=== PATIENT | male | born 1960 | race Caucasian/White ===

== ENCOUNTER 2016-10-27 13:30 | Emergency (ER) | payer MEDICARE ==
[~2016-10-27 13:30] MED LIST: /DULO30CA OR; ACET500C OR; BACL10TA2 OR; CODE15TA PO; ENDOCET; FLEXERIL PO; HYDR25TA6 OR; HYDROCODONE PO; IBUP800T PO; LISI20TA5 OR; LISI40TA PO; LYRI75CA OR; MEDROL DOSE PACK OR; NAPR500T OR; NEUR300C; NEUR600T PO; NUCYNTA; PERC5TAB8 OR; PROM12SU PO; TOPR100T OR; TOPR100T PO; ZEST20TA4 OR; ZITH250T OR
[2016-10-27] MEDS ORDERED: KETOROLAC 30 MG/ML VIAL (J1885) As Ordered ONE (15:19)
--- NOTE | 2016-10-27 16:15 | EDDOCDS ---
Nurse's Notes [facility] Name: Ricardo Franco Age: 55 yrs Sex: Male : 1960 Arrival Date: 10/27/2016 Time: 13:30 Bed PD Private MD: DEMARCUS, Diagnosis: Sciatica, left side;Intervertebral disc disorders with radiculopathy, lumbosacral region Presentation: 10/27 13:42 Presenting complaint: Patient states: Worsening left hip pain for one week, no injury. dwg States he thinks he has bursitis. Adult Sepsis Screening: The patient does not have new or worsening altered mentation. Patient's respiratory rate is less than 22. Systolic blood pressure is greater than 100. Patient has a qSOFA score of 0- Negative Sepsis Screen. Suicide/Homicide risk assessment- the patient denies having any suicidal and/or homicidal ideations and does not present with any other emotional, behavioral or mental health complaints. Status: Patient is not a sales representative facility services or dependent. Transition of care: patient was not received from another setting of care. 13:42 Acuity: KEVEN Level 4 dwg 13:42 Method Of Arrival: Walkin/Carried/Asstd dwg Triage Assessment: 13:45 General: Appears in no apparent distress. Pain: Pain currently is 10 out of 10 on a dwg pain scale. HIV screening NA for this visit Offered previously. Historical: - Allergies: no known allergies; - Home Meds: 1. lisinopril-hydrochlorothiazide 20-12.5 mg oral tab 1 tab once daily (Last dose: 10/27/2016 11:00) - PMHx: Hypertension; Back pain; - PSHx: Back surgery 2010; - Social history: Smoking status: Patient uses tobacco products, current every day smoker. No barriers to communication noted, The patient speaks fluent Bengali. - Family history: Not pertinent. - : The pt / caregiver states he / she is not on anticoagulants. Home medication list is obtained from the patient. - Exposure Risk Screening:: None identified. Screenin:13 Screening information is obtained from the patient. Fall risk: No risks identified. srm Assistance ADL's: requires no assistance with activities of daily living. Abuse/DV Screen: The patient / caregiver reports he/she is: not in a situation that causes fear, pain or injury. Nutritional screening: No deficits noted. Advance Directives: Unable to assess Advance Directive status due to pt condition. home support is adequate. Assessment: 15:27 General: Appears uncomfortable, Behavior is appropriate for age, cooperative. Pain: mb9 Location: left hip Pain currently is 8 out of 10 on a pain scale. 16:13 Reassessment: Patient appears in no apparent distress at this time. Patient states srm feeling better. Patient states symptoms have improved. Vital Signs: 13:31 BP 192 / 97; Pulse 91; Resp 20; Temp 98.4; Pulse Ox 97% ; Weight 90.72 kg; Height 5 ft. cmb 7 in. (170.18 cm); Pain 10/10; 15:27 BP 169 / 91 (man/); mdr 16:13 BP 139 / 88; Pulse 75; Resp 18; Temp 99.2(TE); Pulse Ox 96% on R/A; Pain 7/10; mdr 16:13 Pain 4/10; srm 13:31 Body Mass Index 31.32 (90.72 kg, 170.18 cm) cmb Vitals: 13:31 Log In Time: October 27, 2016 at 13:30. cmb ED Course: 13:31 Patient visited by Susana Woodard. cmb 13:31 Emeka Chavez is Private Physician. cmb 13:31 DEMARCUS is Private Physician. cmb 13:31 Patient moved to Waiting cmb 13:33 Patient moved to Pre RCE cmb 13:43 Triage Initiated dwg 15:00 Patient moved to Triage 2 le 15:03 [facility] dt4 15:03 Tony Wyatt MD is Attending Physician. dt4 15:03 Patient visited by Eri Esquivel PA-C. dt4 15:18 Patient moved to PD2 mdr 15:27 Patient visited by Jorje Booker PCA. mdr 15:29 [facility] Payment Agreement was scanned into [employer] and attached to record. lg 15:59 Patient visited by Eri Esquivel PA-C. dt4 16:01 Your own Physician is Referral Physician. dt4 16:13 The patient / caregiver is instructed regarding the plan of care and ED course. Patient srm has correct armband on for positive identification. 16:13 No IV's were initiated during this patient's visit. No procedures done that require srm assistance. 16:14 Patient visited by Jorje Booker PCA. mdr Administered Medications: 15:26 Drug: ketorolac 60 mg [ketorolac 30 mg/mL (1 mL) injection solution (2 mL)] Route: IM; mb9 Site: right gluteus; 16:13 Follow up: Pain 10 Adult srm Order Results: There are currently no results for this order. Outcome: 16:02 Discharge ordered by Provider. dt4 16:13 Discharge Assessment: Patient awake, alert and oriented x 3. No cognitive and/or srm functional deficits noted. Patient verbalized understanding of disposition instructions. patient administered narcotics - no. The following High Risk Discharge criteria are identified: None. Discharged to home ambulatory. Condition: good Condition: stable. Property sent home with patient. 16:14 Discharge instructions given to patient, Instructed on discharge instructions, follow srm up and referral plans. medication usage, Demonstrated understanding of instructions, medications, Pt was receptive of discharge instructions/ teaching. Prescriptions given X 2. No special radiology studies were completed. 16:15 Patient left the ED. srm Signatures: Curtis Silverio, Jossie Oneal RN, RN RN Ara Duvall, Reg Reg lg Rachel Dueñas, METAL MELTER METAL MELTER Susana Lenz Diane, PA-C PA-C dt4 Jose Ramon Salas RN RN mb9 Jorje Booker PCA TUNNEL FORM PLACING SUPERVISOR mdr MTDD
--- NOTE | 2016-10-27 16:15 | EDDOCDS ---
Physician Documentation [facility] Name: Ricardo Franco Age: 55 yrs Sex: Male : 1960 Arrival Date: 10/27/2016 Time: 13:30 Bed PD Private MD: DEMARCUS, Disposition: 10/27/16 16:02 Discharged to Home/Self Care. Impression: Sciatica, left side, Intervertebral disc disorders with radiculopathy, lumbosacral region. - Condition is Stable. - Discharge Instructions: Lumbosacral Radiculopathy, Sciatica. - Prescriptions for [place] 5- 325 mg Oral Tablet - take 1 tablet by ORAL route every 6 hours As needed MDD: 4 tabs; 20 tablet. Prednisone 20 mg Oral Tablet - take 2 tablet by ORAL route once daily for 5 days; 10 tablet. - Medication Reconciliation, Local Pharmacy Hours form. - Follow up: Emergency Department; When: As needed; Reason: Worsening of conditions. Follow up: Your own Physician; When: DR. CABRERA IN [place] ([place] ; Reason: Wound/Symptom Recheck, Recheck today's complaints, Continuance of care. - Problem is new. - Symptoms have improved. Historical: - Allergies: no known allergies; - Home Meds: 1. lisinopril-hydrochlorothiazide 20-12.5 mg oral tab 1 tab once daily (Last dose: 10/27/2016 11:00) - PMHx: Hypertension; Back pain; - PSHx: Back surgery 2010; - Social history: Smoking status: Patient uses tobacco products, current every day smoker. No barriers to communication noted, The patient speaks fluent Syrian. - Family history: Not pertinent. - : The pt / caregiver states he / she is not on anticoagulants. Home medication list is obtained from the patient. - Exposure Risk Screening:: None identified. Vital Signs: 10/27 13:31 BP 192 / 97; Pulse 91; Resp 20; Temp 98.4; Pulse Ox 97% ; Weight 90.72 kg / 200 lbs; cmb Height 5 ft. 7 in. (170.18 cm); Pain 10/10; 15:27 BP 169 / 91 (man/); mdr 16:13 BP 139 / 88; Pulse 75; Resp 18; Temp 99.2(TE); Pulse Ox 96% on R/A; Pain 7/10; mdr 16:13 Pain 4/10; srm 13:31 Body Mass Index 31.32 (90.72 kg, 170.18 cm) cmb MDM: 15:16 ketorolac 60 mg IM once ordered. dt4 15:17 Recheck B/P ordered. dt4 15:18 Hip,AP,LAT to include Pelvis Ordered. EDMS 15:18 Spine. Lumbosacral, Complete Ordered. EDMS 15:29 Financial registration complete. lg 15:29 [facility] Payment Agreement was scanned into [employer] and attached to record. lg Administered Medications: 15:26 Drug: ketorolac 60 mg [ketorolac 30 mg/mL (1 mL) injection solution (2 mL)] Route: IM; mb9 Site: right gluteus; 16:13 Follow up: Pain 4/10 Adult srm Signatures: Dispatcher [employer] EDMS Curtis Silverio RN RN [facility] Jossie Sierra RN RN srm Ara Tejeda, Reg Reg lg Eri Esquivel PA-C PA-C dt4 Jose Ramon Salas RN mb9 The chart was reviewed and I authenticate all verbal orders and agree with the evaluation and treatment provided.Attachments: 15:29 [facility] Payment Agreement lg MTDD
--- NOTE | 2016-10-27 16:18 | REP ---
Lumbar spine series: Five views. History: Low back and left hip pain. Comparison study January 30, 2015. Findings: Lumbar vertebral body heights are preserved. Alignment is normal on lateral radiograph. There is a mild levoconvex curvature on the AP projection. There is degenerative disc disease at L4-5, which is a little more pronounced than on the prior study. Some degenerative disc narrowing and spur formation is also noted at L3-4 and L2-3. There is osteoarthritic facet hypertrophy and sclerosis at L5-S1 and L4-5 bilaterally, left more so than right. This is unchanged from the January 2015 prior study. Pedicles and posterior elements are intact. Degenerative disc disease seen in the lower thoracic spine as well. Sacrum and SI joints are intact. Impression: Multilevel degenerative disc disease. Osteoarthritic facet changes noted at L4-5 and L5-S1 bilaterally. Findings status quo from the prior study January 28, 2015. No acute bony abnormality seen. Signed by Gregorio Villanueva MD 10/27/2016 04:27 P
--- NOTE | 2016-10-27 16:34 | REP ---
AP pelvis left hip: Three views: History: Left hip pain. Findings: The bony pelvic ring is intact. No hip or sacral fracture is seen. Femoral heads are smooth and rounded and hip joint spaces preserved. No other acute bony abnormality is seen. Impression: No evidence of fracture or other acute bony abnormality. Some spondylosis changes are noted in the lower lumbar spine. Signed by Gregorio Villanueva MD 10/27/2016 05:02 P
--- NOTE | 2016-10-29 17:15 | EDDOCDS ---
Physician Documentation [facility] Name: Ricardo Franco Age: 55 yrs Sex: Male : 1960 Arrival Date: 10/27/2016 Time: 13:30 Bed PD Private MD: DEMARCUS, Disposition: 10/27/16 16:02 Discharged to Home/Self Care. Impression: Sciatica, left side, Intervertebral disc disorders with radiculopathy, lumbosacral region. - Condition is Stable. - Discharge Instructions: Lumbosacral Radiculopathy, Sciatica. - Prescriptions for [place] 5- 325 mg Oral Tablet - take 1 tablet by ORAL route every 6 hours As needed MDD: 4 tabs; 20 tablet. Prednisone 20 mg Oral Tablet - take 2 tablet by ORAL route once daily for 5 days; 10 tablet. - Medication Reconciliation, Local Pharmacy Hours form. - Follow up: Emergency Department; When: As needed; Reason: Worsening of conditions. Follow up: Your own Physician; When: DR. CABRERA IN [place] ([place] ; Reason: Wound/Symptom Recheck, Recheck today's complaints, Continuance of care. - Problem is new. - Symptoms have improved. Historical: - Allergies: no known allergies; - Home Meds: 1. lisinopril-hydrochlorothiazide 20-12.5 mg oral tab 1 tab once daily (Last dose: 10/27/2016 11:00) - PMHx: Hypertension; Back pain; - PSHx: Back surgery 2010; - Social history: Smoking status: Patient uses tobacco products, current every day smoker. No barriers to communication noted, The patient speaks fluent Kyrgyz. - Family history: Not pertinent. - : The pt / caregiver states he / she is not on anticoagulants. Home medication list is obtained from the patient. - Exposure Risk Screening:: None identified. Vital Signs: 10/27 13:31 BP 192 / 97; Pulse 91; Resp 20; Temp 98.4; Pulse Ox 97% ; Weight 90.72 kg / 200 lbs; cmb Height 5 ft. 7 in. (170.18 cm); Pain 10/10; 15:27 BP 169 / 91 (man/); mdr 16:13 BP 139 / 88; Pulse 75; Resp 18; Temp 99.2(TE); Pulse Ox 96% on R/A; Pain 7/10; mdr 16:13 Pain 4/10; srm 13:31 Body Mass Index 31.32 (90.72 kg, 170.18 cm) cmb MDM: 15:16 ketorolac 60 mg IM once ordered. dt4 15:17 Recheck B/P ordered. dt4 15:18 Hip,AP,LAT to include Pelvis Ordered. EDMS 15:18 Spine. Lumbosacral, Complete Ordered. EDMS 15:29 Financial registration complete. lg 15: [facility] Payment Agreement was scanned into [employer] and attached to record. lg 10/28 09: T-Sheet-- Draft Copy was scanned into [employer] and attached to record. gb : Radiology Report was scanned into [employer] and attached to record. gb Administered Medications: 10/27 15:26 Drug: ketorolac 60 mg [ketorolac 30 mg/mL (1 mL) injection solution (2 mL)] Route: IM; mb9 Site: right gluteus; 16:13 Follow up: Pain 4/10 Adult srm Signatures: Dispatcher [employer] EDMS Curtis Silverio, RN RN dwJossie Garcia RN RN srm Mary Charles, Reg Reg gb Ara Tejeda, Reg Reg lg Eri Esquivel PA-C PA-C dt4 Jose Ramon Salas RN mb9 The chart was reviewed and I authenticate all verbal orders and agree with the evaluation and treatment provided.Attachments: 15: [facility] Payment Agreement lg 10/28 08:22 T-Sheet-- Draft Copy gb Chart Complete MTDD
--- NOTE | 2016-10-29 17:15 | EDDOCDS ---
Physician Documentation [facility] Name: Ricardo Franco Age: 55 yrs Sex: Male : 1960 Arrival Date: 10/27/2016 Time: 13:30 Bed PD Private MD: DEMARCUS, Disposition: 10/27/16 16:02 Discharged to Home/Self Care. Impression: Sciatica, left side, Intervertebral disc disorders with radiculopathy, lumbosacral region. - Condition is Stable. - Discharge Instructions: Lumbosacral Radiculopathy, Sciatica. - Prescriptions for [place] 5- 325 mg Oral Tablet - take 1 tablet by ORAL route every 6 hours As needed MDD: 4 tabs; 20 tablet. Prednisone 20 mg Oral Tablet - take 2 tablet by ORAL route once daily for 5 days; 10 tablet. - Medication Reconciliation, Local Pharmacy Hours form. - Follow up: Emergency Department; When: As needed; Reason: Worsening of conditions. Follow up: Your own Physician; When: DR. CABRERA IN [place] ([place] ; Reason: Wound/Symptom Recheck, Recheck today's complaints, Continuance of care. - Problem is new. - Symptoms have improved. Historical: - Allergies: no known allergies; - Home Meds: 1. lisinopril-hydrochlorothiazide 20-12.5 mg oral tab 1 tab once daily (Last dose: 10/27/2016 11:00) - PMHx: Hypertension; Back pain; - PSHx: Back surgery 2010; - Social history: Smoking status: Patient uses tobacco products, current every day smoker. No barriers to communication noted, The patient speaks fluent [place] Citizen. - Family history: Not pertinent. - : The pt / caregiver states he / she is not on anticoagulants. Home medication list is obtained from the patient. - Exposure Risk Screening:: None identified. Vital Signs: 10/27 13:31 BP 192 / 97; Pulse 91; Resp 20; Temp 98.4; Pulse Ox 97% ; Weight 90.72 kg / 200 lbs; cmb Height 5 ft. 7 in. (170.18 cm); Pain 10/10; 15:27 BP 169 / 91 (man/); mdr 16:13 BP 139 / 88; Pulse 75; Resp 18; Temp 99.2(TE); Pulse Ox 96% on R/A; Pain 7/10; mdr 16:13 Pain 4/10; srm 13:31 Body Mass Index 31.32 (90.72 kg, 170.18 cm) cmb MDM: 15:16 ketorolac 60 mg IM once ordered. dt4 15:17 Recheck B/P ordered. dt4 15:18 Hip,AP,LAT to include Pelvis Ordered. EDMS 15:18 Spine. Lumbosacral, Complete Ordered. EDMS 15:29 Financial registration complete. lg 15: [facility] Payment Agreement was scanned into [employer] and attached to record. lg 10/28 09: T-Sheet-- Draft Copy was scanned into [employer] and attached to record. gb : Radiology Report was scanned into [employer] and attached to record. gb Administered Medications: 10/27 15:26 Drug: ketorolac 60 mg [ketorolac 30 mg/mL (1 mL) injection solution (2 mL)] Route: IM; mb9 Site: right gluteus; 16:13 Follow up: Pain 4/10 Adult srm Signatures: Dispatcher [employer] EDMS Curtis Silverio, RN RN dwJossie Garcia RN RN srm Mary Charles, Reg Reg gb Ara Tejeda, Reg Reg lg Eri Esquivel PA-C PA-C dt4 Jose Ramon Salas RN mb9 The chart was reviewed and I authenticate all verbal orders and agree with the evaluation and treatment provided.Attachments: 15: [facility] Payment Agreement lg 10/28 08:22 T-Sheet-- Draft Copy gb Chart Complete MTDD
--- NOTE | 2016-10-29 17:15 | EDDOCDS ---
Nurse's Notes [facility] Name: Ricardo Franco Age: 55 yrs Sex: Male : 1960 Arrival Date: 10/27/2016 Time: 13:30 Bed PD Private MD: DEMARCUS, Diagnosis: Sciatica, left side;Intervertebral disc disorders with radiculopathy, lumbosacral region Presentation: 10/27 13:42 Presenting complaint: Patient states: Worsening left hip pain for one week, no injury. dwg States he thinks he has bursitis. Adult Sepsis Screening: The patient does not have new or worsening altered mentation. Patient's respiratory rate is less than 22. Systolic blood pressure is greater than 100. Patient has a qSOFA score of 0- Negative Sepsis Screen. Suicide/Homicide risk assessment- the patient denies having any suicidal and/or homicidal ideations and does not present with any other emotional, behavioral or mental health complaints. Status: Patient is not a service officer or dependent. Transition of care: patient was not received from another setting of care. 13:42 Acuity: KEVEN Level 4 dwg 13:42 Method Of Arrival: Walkin/Carried/Asstd dwg Triage Assessment: 13:45 General: Appears in no apparent distress. Pain: Pain currently is 10 out of 10 on a dwg pain scale. HIV screening NA for this visit Offered previously. Historical: - Allergies: no known allergies; - Home Meds: 1. lisinopril-hydrochlorothiazide 20-12.5 mg oral tab 1 tab once daily (Last dose: 10/27/2016 11:00) - PMHx: Hypertension; Back pain; - PSHx: Back surgery 2010; - Social history: Smoking status: Patient uses tobacco products, current every day smoker. No barriers to communication noted, The patient speaks fluent Malay. - Family history: Not pertinent. - : The pt / caregiver states he / she is not on anticoagulants. Home medication list is obtained from the patient. - Exposure Risk Screening:: None identified. Screenin:13 Screening information is obtained from the patient. Fall risk: No risks identified. srm Assistance ADL's: requires no assistance with activities of daily living. Abuse/DV Screen: The patient / caregiver reports he/she is: not in a situation that causes fear, pain or injury. Nutritional screening: No deficits noted. Advance Directives: Unable to assess Advance Directive status due to pt condition. home support is adequate. Assessment: 15:27 General: Appears uncomfortable, Behavior is appropriate for age, cooperative. Pain: mb9 Location: left hip Pain currently is 8 out of 10 on a pain scale. 16:13 Reassessment: Patient appears in no apparent distress at this time. Patient states srm feeling better. Patient states symptoms have improved. Vital Signs: 13:31 BP 192 / 97; Pulse 91; Resp 20; Temp 98.4; Pulse Ox 97% ; Weight 90.72 kg; Height 5 ft. cmb 7 in. (170.18 cm); Pain 10/10; 15:27 BP 169 / 91 (man/); mdr 16:13 BP 139 / 88; Pulse 75; Resp 18; Temp 99.2(TE); Pulse Ox 96% on R/A; Pain 7/10; mdr 16:13 Pain 4/10; srm 13:31 Body Mass Index 31.32 (90.72 kg, 170.18 cm) cmb Vitals: 13:31 Log In Time: October 27, 2016 at 13:30. cmb ED Course: 13:31 Patient visited by Susana Woodard. cmb 13:31 Emeka Chavez is Private Physician. cmb 13:31 DEMARCUS is Private Physician. cmb 13:31 Patient moved to Waiting cmb 13:33 Patient moved to Pre RCE cmb 13:43 Triage Initiated dwg 15:00 Patient moved to Triage 2 le 15:03 [facility]. dt4 15:03 Tony Wyatt MD is Attending Physician. dt4 15:03 Patient visited by Eri Esquivel PA-C. dt4 15:18 Patient moved to PD2 mdr 15:27 Patient visited by Jorje Booker PCA. mdr 15:29 [facility] Payment Agreement was scanned into [employer] and attached to record. lg 15:59 Patient visited by Eri Esquivel PA-C. dt4 16:01 Your own Physician is Referral Physician. dt4 16:13 The patient / caregiver is instructed regarding the plan of care and ED course. Patient srm has correct armband on for positive identification. 16:13 No IV's were initiated during this patient's visit. No procedures done that require srm assistance. 16:14 Patient visited by Jorje Booker PCA. mdr 16:33 Spine. Lumbosacral, Complete Returned. EDMS 17:27 Hip,AP,LAT to include Pelvis Returned. EDMS 10/28 09:22 T-Sheet-- Draft Copy was scanned into [employer] and attached to record. gb 09:22 Radiology Report was scanned into [employer] and attached to record. gb Administered Medications: 10/27 15:26 Drug: ketorolac 60 mg [ketorolac 30 mg/mL (1 mL) injection solution (2 mL)] Route: IM; mb9 Site: right gluteus; 16:13 Follow up: Pain 01/18 Adult srm Order Results: Radiology Order: Hip,AP,LAT to include Pelvis Test: Hip,AP,LAT to include Pelvis REASON FOR EXAMINATION: LEFT HIP PAIN; AP pelvis left hip: Three views:; ; History: Left hip pain.; ; Findings: The bony pelvic ring is intact. No hip or sacral fracture is seen.; Femoral heads are smooth and rounded and hip joint spaces preserved. No other; acute bony abnormality is seen.; ; Impression:; ; No evidence of fracture or other acute bony abnormality. Some spondylosis; changes are noted in the lower lumbar spine.; ; ; Signed by; Gregorio Villanueva MD 10/27/2016 05:02 P; Radiology Order: Spine. Lumbosacral, Complete Test: Spine. Lumbosacral, Complete REASON FOR EXAMINATION: LOW BACK AND LEFT HIP PAIN; Lumbar spine series: Five views.; ; History: Low back and left hip pain.; ; Comparison study January 30, 2015.; ; Findings: Lumbar vertebral body heights are preserved. Alignment is normal on; lateral radiograph. There is a mild levoconvex curvature on the AP projection.; There is degenerative disc disease at L4-5, which is a little more pronounced; than on the prior study. Some degenerative disc narrowing and spur formation is; also noted at L3-4 and L2-3. There is osteoarthritic facet hypertrophy and; sclerosis at L5-S1 and L4-5 bilaterally, left more so than right. This is; unchanged from the January 2015 prior study. Pedicles and posterior elements are; intact. Degenerative disc disease seen in the lower thoracic spine as well.; Sacrum and SI joints are intact.; ; Impression:; ; Multilevel degenerative disc disease. Osteoarthritic facet changes noted at L4-5; and L5-S1 bilaterally. Findings status quo from the prior study January 28, 2015.; No acute bony abnormality seen.; ; ; Signed by; Gregorio Villanueva MD 10/27/2016 04:27 P; Outcome: 16:02 Discharge ordered by Provider. dt4 16:13 Discharge Assessment: Patient awake, alert and oriented x 3. No cognitive and/or srm functional deficits noted. Patient verbalized understanding of disposition instructions. patient administered narcotics - no. The following High Risk Discharge criteria are identified: None. Discharged to home ambulatory. Condition: good Condition: stable. Property sent home with patient. 16:14 Discharge instructions given to patient, Instructed on discharge instructions, follow srm up and referral plans. medication usage, Demonstrated understanding of instructions, medications, Pt was receptive of discharge instructions/ teaching. Prescriptions given X 2. No special radiology studies were completed. 16:15 Patient left the ED. srm Signatures: Dispatcher [employer] EDMS Curtis Silverio, RN RN Jossie Mack RN RN srm Mary Charles, Reg Reg gb Ara Tejeda, Reg Reg lg Rachel Dueñas, TEST BAKER TEST BAKERSusana Martino Diane, PA-C PA-C dt4 Jose Ramon Salas,RN RN mb9 Jorje Booker, PJ CAVITY PUMP OPERATOR mdr Chart Complete MTDD
== END 2016-10-27 16:15 | disposition home or self-care (01) ==
LOC: M ED 13:30
DX: M54.32 Sciatica, left side (principal); M51.36 Other intervertebral disc degeneration, lumbar region; M51.37 Other intervertebral disc degeneration, lumbosacral region; I10 Essential (primary) hypertension; Z72.0 Tobacco use; Z79.899 Other long term (current) drug therapy
CPT/HCPCS: 72110; 73502; 96372; 99283; J1885

== ENCOUNTER 2017-03-31 13:27 | Emergency (ER) | payer OTHER, MEDICARE ==
[~2017-03-31] VITALS: Ht 170.2 cm; Wt 92.8 kg
[2017-03-31 13:29] VITALS: BP 167/111
[2017-03-31] MEDS ORDERED: ASPI81TA85 PO (13:38)
[2017-03-31] MEDS ORDERED: LISI10TA2 PO (13:38)
[2017-03-31] MEDS ORDERED: PRAV10TA3 PO (13:38)
[2017-03-31] MEDS ORDERED: CYCL10TA PO (14:44)
[2017-03-31] MEDS ORDERED: NAPR500T PO (14:44)
== END 2017-03-31 15:21 | disposition home or self-care (01) ==
LOC: M ED 15:13
DX: M54.42 Lumbago with sciatica, left side (principal); E11.9 Type 2 diabetes mellitus without complications; I10 Essential (primary) hypertension; E78.00 Pure hypercholesterolemia, unspecified; F17.200 Nicotine dependence, unspecified, uncomplicated; Z79.82 Long term (current) use of aspirin; Z79.899 Other long term (current) drug therapy

== ENCOUNTER 2018-06-01 11:27 | Emergency (ER) | payer MEDICARE, OTHER ==
[2018-06-01] MEDS: methylPREDNISolone INJ 125 MG/2 ML VIAL (J2930) IV (13:39)
[2018-06-01] MEDS: CLINDAMYCIN 900 MG in APPROPRIATE DILUENT 1 EA IV (13:39)
[2018-06-01] MEDS: MORPHINE 4 MG/ML 1ML VIAL/SYRINGE (J2270) IV (13:39)
[2018-06-01] MEDS: NS 1,000 ML IV ×2 (13:39→15:56)
[2018-06-01 14:08] LABS: BASO # 0.1 10^3/uL (0.0-0.2); BASO % 0.4 % (0.0-1.0); EOS % 0.1 % (0.0-3.0); HEMATOCRIT 46.8 % (42.0-52.0); HEMOGLOBIN 16.9 g/dl (13.5-17.5); IMMATURE GRANULOCYTE % 0.4 % (0-3.0); LYMPH # 0.5 10^3/uL (1.5-4.5); LYMPH % 3.5 % (24.0-44.0); MEAN CORPUSCULAR HEMOGLOBIN 32.4 pg (27.0-33.0); MEAN CORPUSCULAR HGB CONC 36.1 g/dl (32.0-36.5); MEAN CORPUSCULAR VOLUME 89.7 fl (80.0-96.0); MONO # 0.6 10^3/uL (0.0-0.8); MONO % 4.1 % (0.0-5.0); NEUTROPHILS # 12.9 10^3/uL (1.8-7.7); NEUTROPHILS % 91.5 % (36.0-66.0); PLATELET COUNT, AUTOMATED 157 10^3/uL (150-450); RED BLOOD COUNT 5.22 10^6/uL (4.30-6.10); WHITE BLOOD COUNT 14.1 10^3/uL (4.0-10.0)
[2018-06-01 14:13] LABS: ANION GAP 9 MEQ/L (8-16); BLOOD UREA NITROGEN 6 MG/DL (7-18); CALCIUM LEVEL 8.9 MG/DL (8.5-10.1); CARBON DIOXIDE LEVEL 25 MEQ/L (21-32); CHLORIDE LEVEL 100 MEQ/L (98-107); CREATININE FOR GFR 0.76 MG/DL (0.70-1.30); GLOMERULAR FILTRATION RATE > 60.0 (>56); GLUCOSE, FASTING 91 MG/DL (70-100); POTASSIUM SERUM 3.7 MEQ/L (3.5-5.1); SODIUM LEVEL 134 MEQ/L (136-145)
[2018-06-01 14:16] LABS: LACTIC ACID SEPSIS PROTOCOL 1.2 MMOL/L (0.4-2.0)
[2018-06-01] MEDS ORDERED: ISOVUE-370 76% 100ML VIAL (Q9967) As Ordered (14:31)
[2018-06-01 14:52] LABS: ERYTHROCYTE SEDIMENTATION RATE 8 mm/hr (0-20)
[2018-06-01] MEDS: ONDANSETRON 4MG/2ML VIAL (J2405) IV (15:56)
== END 2018-06-01 16:57 | disposition home or self-care (01) ==
LOC: M ED 11:27
DX: K04.7 Periapical abscess without sinus (principal); I10 Essential (primary) hypertension; E78.9 Disorder of lipoprotein metabolism, unspecified; Z79.899 Other long term (current) drug therapy; Z79.82 Long term (current) use of aspirin; F17.210 Nicotine dependence, cigarettes, uncomplicated
CPT/HCPCS: J2270